=== PATIENT | male | born 1930 | race Caucasian/White ===

== ENCOUNTER 2019-01-27 12:08 | Inpatient (IN) | payer MEDICARE ==
[~2019-01-27] VITALS: Ht 180.3 cm; Wt 84.4 kg
[~2019-01-27 12:08] MED LIST: AC500T PO; ASP81CT PO; ASPI-266 PO; ATRV10T PO; BLOOD PRESSURE MED; BSC10SU PR; CALCIUM; CPR500T PO; HCT25T PO; HYDR-3720 PO; LISI10TA PO; METO-272 PO; METO25TA PO; MULT-608; PHOSPHORUS; TRAM-21 PO; VITAMIN A; VITAMIN B-12; VITAMIN C; VITAMIN D
[2019-01-27] MEDS ORDERED: fentaNYL INJECTION 100 MCG/2 ML AMP IM ONE (13:00)
--- NOTE | 2019-01-27 13:02 | ED Back Pain ---
General Chief Complaint: Back Problems Stated Complaint: FALL L HIP/BACK PAIN Source of Information: Patient, Family Exam Limitations: Physical Impairments History of Present Illness Date Seen by Provider: Jan 27, 2019 Time Seen by Provider: 13:00 Initial Comments This 80-year-old male presents after sustaining an injury to his low back when he fell at home. Prescription [facility] emergency room. He is complaining of pain over the lumbar area. He denies paresthesias or weakness in extremities. He denies other injury in this fall. Allergies and Home Medications Allergies Coded Allergies: indomethacin (Unverified Allergy, Mild, 03/20/09) Home Medications Aspirin 81 Mg Tablet.dr, 81 MG PO DAILY, (Reported) Atorvastatin Calcium 10 Mg Tablet, 1 EACH PO HS, (Reported) Lisinopril 10 Mg Tablet, 10 MG PO DAILY, (Reported) Metoprolol Succinate 50 Mg Tab.sr.24h, 1 EACH PO DAILY, (Reported) Tramadol Hcl 50 Mg Tablet, 50 MG PO Q12H PRN for PAIN Prescribed by: RHETT ABARCA on 08/09/14 0105 Patient Home Medication List Home Medication List Reviewed: Yes Review of Systems Constitutional: No chills, No fever EENTM: no symptoms reported Respiratory: No cough Cardiovascular: No chest pain Gastrointestinal: No abdominal pain, No diarrhea, No nausea, No vomiting Genitourinary: No dysuria, No frequency Musculoskeletal: No back pain Skin: no symptoms reported Psychiatric/Neurological: No Symptoms Reported Past Dlqybzu-Cftkra-Vjcvnr Hx Past Med/Social Hx: Reviewed Nursing Past Med/Soc Hx Immunizations Up To Date Tetanus Booster (TDap): Unknown Past Medical History Reproductive Disorders: No Sexually Transmitted Disease: No HIV/AIDS: No Chronic Constipation Fractures 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 oz. 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) Neck: Full Range of Motion, Normal Inspection, Non Tender, Supple Cardiovascular: Regular Rate, Rhythm, No Murmur Respiratory: Lungs Clear, Normal Breath Sounds, No Respiratory Distress Gastrointestinal: Normal Bowel Sounds, Soft Extremity: Normal Capillary Refill, Normal Range of Motion, Non Tender Neurologic/Psychiatric: Alert, No Motor/Sensory Deficits Progress/Results/Core Measures Results/Orders My Orders Orders - LEROY PEPPER MD Fentanyl Injection (Sublimaze Injection (01/27/19 13:00) Ct Lumbar Spine Wo (01/27/19 12:56) Hydromorphone Injection (Dilaudid Inject (01/27/19 13:45) Medications Given in ED Current Medications Medications Dose Ordered Sig/Jennifer Route Start Time Stop Time Status Last Admin Dose Admin Fentanyl Citrate 50 mcg ONCE ONCE IM 01/27/19 13:00 01/27/19 13:01 DC 01/27/19 13:13 50 MCG Hydromorphone HCl 1 mg ONCE ONCE IV 01/27/19 13:45 01/27/19 13:46 DC 01/27/19 13:52 1 MG Vital Signs/I&O 01/27/19 12:10 Temp 97.6 Pulse 78 Resp 20 B/P (MAP) 165/92 (116) Pulse Ox 95 Progress Progress Note : Time: 14:21 Progress Note Others with Dr. Vick is director of marketing operations for Dr. Simpson. We admitted the patient for pain control and physical therapy. Patient received 50 g fentanyl with little relief in his back pain. He received a milligram of Dilaudid with significant improvement. CT of his lumbar spine demonstrated a compression fracture of L1. Departure Communication (Admissions) Time/Spoke to Admitting Phy: 14:24 Dr. Henderson Impression Primary Impression: Compression fracture of L1 lumbar vertebra Qualified Codes: S32.010A - Wedge compression fracture of first lumbar vertebra, initial encounter for closed fracture Disposition: ADMITTED INPATIENT Condition: Improved Admissions Decision to Admit Reason: Admit from ER (General) Decision to Admit/Date: Jan 27, 2019 Time/Decision to Admit Time: 14:25 Departure-Patient Inst. Referrals: NITESH SIMPSON MD (PCP/Family) Primary Care Physician LEROY PEPPER MD Jan 27, 2019 13:02
[2019-01-27] MEDS ORDERED: HYDROmorphone 2 MG/ML VIAL (DILAUDID) IV ONE (13:45)
--- NOTE | 2019-01-27 13:51 | Diagnostic Imaging Report ---
PROCEDURE: CT lumbar spine without contrast. TECHNIQUE: Multiple contiguous axial images were obtained through the lumbar spine without the use of intravenous contrast. Sagittal and coronal reformations were then performed. Auto Exposure Controls were utilized during the CT exam to meet ALARA standards for radiation dose reduction. INDICATION: Fall with severe low back pain. FINDINGS: Curvature and alignment of the lumbar spine is normal. There appears to be an acute fracture involving the superior endplate of the L1 vertebral body with very mild central compression. No retropulsion is identified. Remaining lumbar vertebrae demonstrate normal stature. 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 There appears to be trefoil narrowing of the central canal at multiple levels due to ligamentous thickening and facet changes as well as broad-based disc/osteophyte complex. There is an infrarenal abdominal aortic aneurysm measuring up to 4.1 cm AP diameter. 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 There are large right-sided renal cysts measuring up to nearly 6 cm. IMPRESSION: 1. Acute superior endplate fracture L1 vertebral body without evidence of retropulsion. 2. Generalized lumbar spondylosis. 3. 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 Dictated by: Dictated on workstation # [id number]
--- NOTE | 2019-01-27 13:53 | NUR ---
DILAUDID GIVEN IM PER DR PEPPER'S REQUEST.
[2019-01-27 15:28] VITALS: BP 151/80
[2019-01-27] MEDS ORDERED: HYDROmorphone 2 MG/ML VIAL (DILAUDID) IV PRN ×2 (16:00→17:00)
[2019-01-27] MEDS ORDERED: CATHETER FLUSH 10 ML SYR IV PRN (16:00)
--- NOTE | 2019-01-27 16:13 | Physical Therapy Evaluation ---
PT Evaluation-General Medical Diagnosis Admission Date Jan 27, 2019 at 14:52 Medical Diagnosis: lumbar compression fx Onset Date: Jan 27, 2019 Therapy Diagnosis Therapy Diagnosis: impaired mobility, strength, endurance Height/Weight Height (Feet): 5 Height (Inches): 11.00 Weight (Pounds): 183 Precautions Precautions/Isolations: Fall Prevention, Standard Precautions Weight Bear Status Right Lower Extremity: Right Weight Bearing/Tolerated Left Lower Extremity: Left Weight Bearing/Tolerated Referral Physician: Pedro Henderson MD Reason for Referral: Evaluation/Treatment Medical History Additional Medical History Past Medical History Reproductive Disorders: No Sexually Transmitted Disease: No HIV/AIDS: No Chronic Constipation Fractures 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 Patient completes activity by themselves 4 Supervision or touching assist (CGA). Branch provide cues , steadying assist 3 The helper provides less than half the effort to complete the activity 2 The helper provides more than half the effort to complete the activity 1 Dependent. The helper does all the effort to complete an activity 7 Patient refused to complete or attempt activity 9 The patient did not perform the activity before the current illness or injury 88 Not attempted due to Medical conditions or safety concerns Functional Abilities and Goals: Independent: Patient completed the activities by him/herself, with or without an assistive device, with no assistance from a helper. Needed Some Help: Patient needed partial assistance from another person to complete activities. Dependent: A helper completed the activities for the patient. Unknown: Not Applicable: Bed Mobility: 7 Transfers (B,C,W/C) (FIM): 6 Gait: 6 Stairs: 6 Indoor Mobility (Ambulation): Independent Stairs: Independent Patient is blind and uses a cane. PT Evaluation-Current Subjective Patient in bed pre tx, agrees to PT, has 10/10 pain in low back with movement. Patient was just admitted to the floor from ER, he says his pain is severe and it is not really under control yet with meds, the nurse called and found out that the fx does not require operation. Pt/Family Goals "decrease pain" Objective Patient Orientation: Person, Place, Situation ROM/Strength ROM Lower Extremities WNL Strength Lower Extremities 4+/5 gross but hip flexion not tested due to pain Sensory Vision: Blind Totally Hearing: Impaired Sensation Right Lower Extremit: Intact Sensation Left Lower Extremity: Intact Transfers Therapy Code Descriptions/Definitions Functional Knott Measure: 0=Not Assessed/NA 4=Minimal Assistance 1=Total Assistance 5=Supervision or Setup 2=Maximal Assistance 6=Modified Knott 3=Moderate Assistance 7=Complete Knott Transfers (B, C, W/C) (FIM): 5 Scootin Rollin Supine to/from Sit: 5 Patient had 10/10 pain with just sitting, standing and ambulation not done at this time due to pain. Balance Sitting Static: Normal Sitting Dynamic: Normal Assessment/Needs Patient has impaired mobility, strength, endurance. Severe pain with movement. Rehab Potential: Fair PT Short Term Goals Short Term Goals Time Frame: Feb 03, 2019 Transfers (B,C,W/C) (FIM): 6 Gait (FIM): 5 Gait Distance Comment: 150' Gait Level of Assist: 5 Gait Assistive Device: Cane Single Point PT Plan Problem List Problem List: Activity Tolerance, Functional Strength, Safety, Balance, Gait, Transfer, Bed Mobility, ROM Treatment/Plan Treatment Plan: Continue Plan of Care Treatment Plan: Bed Mobility, Education, Functional Activity Zia, Functional Strength, Gait, Safety, Therapeutic Exercise, Transfers Treatment Duration: Feb 03, 2019 Frequency: 6 times per week Estimated Hrs Per Day: .25 hour per day Patient and/or Family Agrees t: Yes Safety Risks/Education Patient Education: Correct Positioning, Safety Issues Teaching Recipient: Patient Teaching Methods: Demonstration, Discussion Response to Teaching: Reinforcement Needed Discharge Recommendations Plan Patient will perform bed mobility and transfer training, balance and endurance training, functional strengthening, stair training, gait training, and education, to improve functional mobility and independence at home. Therapy Discharge Recommendati: Other, See Comments (home with family supervision) Time/GCodes Time In: 1553 Time Out: 1603 Total Billed Treatment Time: 10 Total Billed Treatment 1 visit KIM NEWMAN PT Jan 27, 2019 16:13
[2019-01-27] MEDS ORDERED: ACETAMINOPHEN 500 MG TAB (TYLENOL) PO PRN ×2 (17:00→21:00)
--- NOTE | 2019-01-27 17:34 | History & Physical-Hospitalist ---
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 He was not using his walker and stat normally only uses it when he leaves He fell and when attempting to get up noted s by his who I suspect from his description is quite and also into her 80s. He states that she only has 20 percent of her vision. EMS services were summoned and x-ray evaluation in the emergency room revealed a wedge-shape involving L1 which corresponded with the location He reported no previous known back fractures but he does have hip replacement for hip fracture several years ago. He states that he had been in his usual state of health prior to his fall denying dyspnea on exertion or chest He denied any problems with night sweats chills or fever. Date Seen 01/27/19 Time Seen by a Provider: 04:00 Attending Physician Leroy Henderson MD PCP Indu Simpson MD Referring Physician Date of Admission Jan 27, 2019 at 14:52 Home Medications & Allergies Home Medications Reviewed patient Home Medication Reconciliation performed by pharmacy medication reconciliations satellite installation technician and/or nursing. Patients Allergies have been reviewed. Allergies Allergies Coded Allergies indomethacin (Unverified Allergy, Mild, 03/20/09) Past Muqdzpr-Vjaukg-Euzevi Hx Past Med/Social Hx: Reviewed Nursing Past Med/Soc Hx, Reviewed and Corrections made Patient Social History Alcohol Use: Denies Use Recreational Drug Use: No Smoking Status: Former Smoker Former Smoker, Quit: Feb 02, 2001 Recent Foreign Travel: No Contact w/other who traveled: No Recent Hopitalizations: Yes Recent Infectious Disease Expo: No Immunizations Up To Date Tetanus Booster (TDap): Unknown Date of Pneumonia Vaccine: Feb 03, 2012 Past Medical History Surgeries: Gallbladder, Orthopedic Reproductive: No Sexually Transmitted Disease: No HIV/AIDS: No Gastrointestinal: Chronic Constipation Musculoskeletal: Fractures 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 0.0oz. 84.824468bl; 25.9 BMI Method:Stated General Appearance: Moderate Distress (with any movement only mild distress at rest.) Respiratory: No Accessory Muscle Use, No Respiratory Distress, Other (few dry sounding rales in both bases chest otherwise clear) Cardiovascular: Regular Rate, Rhythm, No Edema, No Gallop, No JVD, No Murmur Gastrointestinal: Normal Bowel Sounds, No Organomegaly, No Pulsatile Mass, Non Tender, Soft Extremity: Normal Capillary Refill, Normal Inspection, No Calf Tenderness, No Pedal Edema Results Results/Procedures Labs Patient resulted labs reviewed. Assessment/Plan Admission Diagnosis 1. Acute compression fracture L1 due to the patient's frailty and for pain management he was admitted. I requested consultation from Dr. Vallecillo but he adv ised physical therapy and attempts at pain management first before even considering kyphoplasty. We will proceed with physical therap expectations discussed with the patient. 2. History of coronary artery disease appears to be clinically stable. Continu e statin therapy. 3. Hypertension continue antihypertensive therapy. Admission Status: Inpatient Order (span 2 midnights) Reason for Inpatient Admission: see admission diagnosis Clinical Quality Measures DVT/VTE Risk/Contraindication: Risk Factor Score Per Nursin RFS Level Per Nursing on Admit: 2=Moderate LEROY HENDERSON MD Jan 27, 2019 17:34
[2019-01-27 18:17] LABS: BASOPHILS % (AUTO) 0 % (0-10); EOSINOPHILS # (AUTO) 0.2 10^3/uL (0.0-0.3); EOSINOPHILS % (AUTO) 2 % (0-10); HEMATOCRIT 39 % (40-54); HEMOGLOBIN 12.6 G/DL (13.3-17.7); LYMPHOCYTES # (AUTO) 1.4 X 10^3 (1.0-4.0); LYMPHOCYTES % (AUTO) 13 % (12-44); MEAN CORPUSCULAR HEMOGLOBIN 36 PG (25-34); MEAN CORPUSCULAR HGB CONC 32 G/DL (32-36); MEAN CORPUSCULAR VOLUME 111 FL (80-99); MEAN PLATELET VOLUME 9.8 FL (7.4-10.4); MONOCYTES # (AUTO) 1.8 X 10^3 (0.0-1.0); MONOCYTES % (AUTO) 16 % (0-12); NEUTROPHILS # (AUTO) 7.8 X 10^3 (1.8-7.8); NEUTROPHILS % (AUTO) 70 % (42-75); PLATELET COUNT 192 10^3/uL (130-400); RED CELL DISTRIBUTION WIDTH 13.6 % (10.0-14.5); WHITE BLOOD COUNT 11.2 10^3/uL (4.3-11.0)
[2019-01-27 18:35] LABS: ALBUMIN 3.3 GM/DL (3.2-4.5); BILIRUBIN,TOTAL 0.7 MG/DL (0.1-1.0); CALCIUM 9.1 MG/DL (8.5-10.1); CREATININE SERUM 1.67 MG/DL (0.60-1.30); POTASSIUM 4.6 MMOL/L (3.6-5.0); TOTAL PROTEIN 7.3 GM/DL (6.4-8.2)
[2019-01-27 20:14] VITALS: BP 167/77
[2019-01-27] MEDS: CATHETER FLUSH 10 ML SYR IV SCH (20:31)
[2019-01-28 00:38] VITALS: BP 171/85
[2019-01-28 04:36] VITALS: BP 145/70
[2019-01-28] MEDS: CATHETER FLUSH 10 ML SYR IV SCH ×3 (06:28→21:06)
[2019-01-28 07:31] VITALS: BP 167/79
[2019-01-28] MEDS: lisINopril 10 MG (PRINIVIL) TABLET PO SCH (08:29)
[2019-01-28] MEDS: meTOproloL SUCCINATE 50 MG (TOPROL XL) TAB PO SCH (08:29)
[2019-01-28 11:03] VITALS: BP 137/62
--- NOTE | 2019-01-28 11:21 | Progress Note - Hospitalist ---
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 He was not using his walker and stat normally only uses it when he leaves He fell and when attempting to get up noted s by his who I suspect from his description is quite and also into her 80s. He states that she only has 20 percent of her vision. EMS services were summoned and x-ray evaluation in the emergency room revealed a wedge-shape involving L1 which corresponded with the location He reported no previous known back fractures but he does have hip replacement for hip fracture several years ago. He states that he had been in his usual state of health prior to his fall denying dyspnea on exertion or chest He denied any problems with night sweats chills or fever. Subjective/Events-last exam Patient reports better pain control was still feeling quite weak. He denies bowel or bladder control problems and reports generalized weakness he does not feel any worse in his legs and his arms. He denies lightheadedness when he gets up. Objective Exam Vital Signs Vital Signs Date Time Temp Pulse Resp B/P (MAP) Pulse Ox O2 Delivery O2 Flow Rate FiO2 01/28/19 11:03 96.6 73 20 137/62 (87) 92 Room Air Capillary Refill : Less Than 3 SecondsLess Than 3 Seconds General Appearance: No Apparent Distress, WD/WN Respiratory: Lungs Clear, Normal Breath Sounds, No Accessory Muscle Use, No Respiratory Distress Cardiovascular: Regular Rate, Rhythm, No Edema, No Gallop, No JVD, Normal Peripheral Pulses Extremity: Normal Inspection, Normal Range of Motion, No Pedal Edema Neurologic/Psychiatric: Alert, No Motor/Sensory Deficits Results/Procedures Lab Patient resulted labs reviewed. Assessment/Plan Assessment and Plan Assess & Plan/Chief Complaint A/P 1. Acute T1 wedge compression fracture due to fall but not from height suspect pathologic etiology due to osteoporosis. 2. Macrocytic anemia I will check B12 and folate levels patient reports that he has been on B12 injection therapy he has been taking oral as of late. Clinical Quality Measures DVT/VTE Risk/Contraindication: Risk Factor Score Per Nursin RFS Level Per Nursing on Admit: 2=Moderate LEROY GORDON MD Jan 28, 2019 11:21
--- NOTE | 2019-01-28 14:24 | Physical Therapy Daily Note ---
PT Daily Note-Current Subjective Pt agreeable to PT session. Voicing concern that his is not answering the phone, called and spoke with nurse, nurse reassured pt that had been trying to call but his phone was busy Pain Numeric Pain Scale: 5-Moderate Pain Comment: "in my back", states he had received pain med Appearance Pt in bed upon arrival, awake and alert. At end of session, pt sitting at EOB eating cookie and drinking coffee, nurse stating pt is ok sitting EOB without supervision, call light, phone and bedside table within reach Mental Status Patient Orientation: Person, Time, Situation Transfers Therapy Code Descriptions/Definitions Functional Walker Measure: 0=Not Assessed/NA 4=Minimal Assistance 1=Total Assistance 5=Supervision or Setup 2=Maximal Assistance 6=Modified Walker 3=Moderate Assistance 7=Complete Walker Therapy Quality Codes: 6 Independent with activity with or without an assistive device 5 Patient requires set up or clean up by helper. Patient completes activity by themselves 4 Supervision or touching assist (CGA). [place] provide cues , steadying assist 3 The helper provides less than half the effort to complete the activity 2 The helper provides more than half the effort to complete the activity 1 Dependent. The helper does all the effort to complete an activity 7 Patient refused to complete or attempt activity 9 The patient did not perform the activity before the current illness or injury 88 Not attempted due to Medical conditions or safety concerns Transfers (B, C, W/C) (FIM): 5 Scootin Rollin Supine to/from Sit: 5 Sit to/from Stand: 5 min inst required for hand placement and safety Weight Bearing Right Lower Extremity: Right Weight Bearing/Tolerated Left Lower Extremity: Left Weight Bearing/Tolerated Gait Training Gait (FIM): 4 Distance (FIM): 3=150 ft Distance: 150 Gait Level of Assist: 4 (CGA to Min A required, per nsg, 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 Pt requiring assist to safely maneuver walker through doorway and around furniture) Gait Persons Needed: 1 Gait Assistive Device: FWW Pt is blind, slow pace, path deviation, decreased step length and height, occasional unsteadiness but without LOB Treatments bed mobility, transfers, gait, balance, strength, activity tolerance, education, safety Assessment Current Status: Good Progress PT Short Term Goals Short Term Goals Time Frame: Feb 03, 2019 Transfers (B,C,W/C) (FIM): 6 Gait (FIM): 5 Gait Distance Comment: 150' Gait Level of Assist: 5 Gait Assistive Device: Cane Single Point PT Plan Treatment/Plan Treatment Plan: Continue Plan of Care Treatment Plan: Bed Mobility, Education, Functional Activity Zia, Functional Strength, Gait, Safety, Therapeutic Exercise, Transfers Treatment Duration: Feb 03, 2019 Frequency: 6 times per week Estimated Hrs Per Day: .25 hour per day Patient and/or Family Agrees t: Yes Safety Risks/Education Patient Education: Gait Training, Transfer Techniques, Safety Issues Teaching Recipient: Patient Teaching Methods: Discussion Response to Teaching: Verbalize Understanding, Return Demonstration Time/GCodes Time In: 1219 Time Out: 1230 Total Billed Treatment Time: 11 Total Billed Treatment 1 visit, GT x1 unit FELZI LOZOYA PTA Jan 28, 2019 14:24
[2019-01-28 16:00] VITALS: BP 157/78
[2019-01-28 23:11] VITALS: BP 120/70
[2019-01-29 04:07] VITALS: BP 120/61
[2019-01-29] MEDS: CATHETER FLUSH 10 ML SYR IV SCH (06:51)
[2019-01-29 08:00] VITALS: BP 135/65
[2019-01-29] MEDS: lisINopril 10 MG (PRINIVIL) TABLET PO SCH (08:32)
[2019-01-29] MEDS: meTOproloL SUCCINATE 50 MG (TOPROL XL) TAB PO SCH (08:32)
[2019-01-29] MEDS ORDERED: TRAM50TA2 PO (09:30)
[2019-01-29] MEDS ORDERED: ACET325C5 PO (09:30)
[2019-01-29] MEDS ORDERED: CYANOCOBALAMIN INJ 1000 MCG/ML IM NR (09:36)
--- NOTE | 2019-01-29 09:37 | Discharge Summary ---
Diagnosis/Chief Complaint Date of Admission Jan 27, 2019 at 14:52 Date of Discharge Discharge Date: Jan 29, 2019 Admission Diagnosis 1. Acute compression fracture L1 due to the patient's frailty and for pain management he was admitted. I requested consultation from Dr. Vallecillo but he ad vised physical therapy and attempts at pain management first before even considering kyphoplasty. We will proceed with physical therap expectations discussed with the patient. 2. History of coronary artery disease appears to be clinically stable. Contin ue statin therapy. 3. Hypertension continue antihypertensive therapy. Primary Care Nitesh Simpson MD Discharge Summary Discharge Physical Exam Allergies: Coded Allergies: indomethacin (Unverified Allergy, Mild, 03/20/09) Vitals & I&Os Vital Signs Date Time Temp Pulse Resp B/P (MAP) Pulse Ox O2 Delivery O2 Flow Rate FiO2 01/29/19 08:00 Room Air 01/29/19 08:00 98.4 77 20 135/65 (88) 94 General Appearance: No Apparent Distress Respiratory: Normal Breath Sounds, No Accessory Muscle Use, No Respiratory Distress, Rales (Few fine basilar rales noted unchanged from admission.) Cardiovascular: Regular Rate, Rhythm Hospital Course Was the Problem List Reviewed?: Yes the patient is a frail 88-year-old 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 He was not using his walker and stat normally only uses it when he leaves He fell and when attempting to get up noted s by his who I suspect from his description is quite and also into her 80s. He states that she only has 20 percent of her vision. EMS services were summoned and x-ray evaluation in the emergency room revealed a wedge-shape involving L1 which corresponded with the location He reported no previous known back fractures but he does have hip replacement for hip fracture several years ago. He states that he had been in his usual state of health prior to his fall denying dyspnea on exertion or chest He denied any problems with night sweats chills or fever Patient was admitted for pain control. He received one more IV dose of by while on the floor. Scheduled tramadol 50 mg every 8 and Tylenol 1 g every 8 hours were given. He reported only pain with movement but was independent and overall felt as pain control was adequate. He was noted to have macrocytic anemia with a low B12 level of 146. He was given thousand micrograms of B12 IM and was advised to follow-up with Dr. Simpson in 1-2 weeks. Orthopedics was consulted via phone but just advised continued pain medication and did not feel considering the circumstances of reasonable pain control that kyphoplasty was indicated at this time. Patient was advised to take Tylenol 650 mg every 8 hours on a scheduled basis. He was concerned about long-term tramadol use and was told he can take this as needed also up to every 8 hours. A prescription was given for 30 tabs of 50 mg strength. He was told that he will need regular B12 therapy either high-dose oral that is monitored or continued IM injections. Labs (last 24 hrs) Laboratory Tests 01/28/19 11:20: Vitamin B12 Level <146L, Folate 8.4 Patient resulted labs reviewed. Discussion & Recommendations Discharge Planning: >30 minutes discharge planning Discharge Home Medications: Active Scripts Active Tylenol (Acetaminophen) 325 Mg Capsule 650 Mg PO Q8H PRN 60 Days Tramadol HCl 50 Mg Tablet 50 Mg PO TID 7 Days Ultram (Tramadol Hcl) 50 Mg Tablet 50 Mg PO Q12H PRN Reported Aspirin Ec Low Dose (Aspirin) 81 Mg Tablet.dr 81 Mg PO DAILY Metoprolol Succinate Xl 50 Mg (Metoprolol Succinate) 50 Mg Tab.sr.24h 1 Each PO DAILY Prinivil (Lisinopril) 10 Mg Tablet 10 Mg PO DAILY Lipitor 10 Mg (Atorvastatin Calcium) 10 Mg Tablet 1 Each PO HS Instructions to patient/family Please see electronic discharge instructions given to patient. Clinical Quality Measures DVT/VTE Risk/Contraindication: Risk Factor Score Per Nursin RFS Level Per Nursing on Admit: 2=Moderate Copy Copies To 1: NITESH SIMPSON MD, MARK D MD Jan 29, 2019 09:37
== END 2019-01-29 10:05 | disposition home or self-care (01) | DRG 948 ==
LOC: EDUNIT# 12:08 → ER 12:11 → 4TH 14:52
PROVIDERS: ADMIT Internal Medicine; ATTEND Internal Medicine
DX: G89.11 Acute pain due to trauma (principal); M80.88XA Other osteoporosis with current pathological fracture, vertebra(e), initial encounter for fracture; W18.09XA Striking against other object with subsequent fall, initial encounter; I25.10 Atherosclerotic heart disease of native coronary artery without angina pectoris; I10 Essential (primary) hypertension; H35.52 Pigmentary retinal dystrophy; D53.9 Nutritional anemia, unspecified; K59.09 Other constipation; H91.90 Unspecified hearing loss, unspecified ear; Z85.038 Personal history of other malignant neoplasm of large intestine; Z96.649 Presence of unspecified artificial hip joint; Z87.891 Personal history of nicotine dependence; Y92.009 Unspecified place in unspecified non-institutional (private) residence as the place of occurrence of the external cause
CPT/HCPCS: 36415; 72131; 80053; 82607; 82746; 85025; 96372; 96374

== ENCOUNTER 2019-01-30 23:08 | Emergency (ER) | payer MEDICARE ==
[~2019-01-30] VITALS: Ht 177.8 cm; Wt 83.0 kg
[~2019-01-30 23:08] MED LIST changes: +ACET325C5 PO; +TRAM50TA2 PO
[2019-01-31 01:39] LABS: BILIRUBIN,URINE NEGATIVE (NEGATIVE); CLARITY,URINE CLEAR; COLOR,URINE YELLOW; GLUCOSE, URINE (UA) NEGATIVE (NEGATIVE); KETONES,URINE NEGATIVE (NEGATIVE); LEUKOCYTE ESTERASE ,URINE NEGATIVE (NEGATIVE); NITRITE,URINE NEGATIVE (NEGATIVE); PH,URINE 5 (5-9); PROTEIN,URINE NEGATIVE (NEGATIVE); UROBILINOGEN,URINE NORMAL (NORMAL)
[2019-01-31 01:46] LABS: BACTERIA,URINE NEGATIVE /HPF; SQUAMOUS EPITHELIAL CELL,UR 0-2 /HPF
[2019-01-31] MEDS ORDERED: ACETAMINOPHEN 500 MG TAB (TYLENOL) PO ONE (02:15)
--- NOTE | 2019-01-31 02:25 | ED General ---
General Chief Complaint: Abdominal/GI Problems Stated Complaint: CONSTIPATION Nursing Triage Note: Patient states that he is having abdominal pain and it "feels like I have to use the bathroom and can't". Patient is also having some back pain. Patient states that he had given himself two enemas at home with no relief. Nursing Sepsis Screen: No Definite Risk Source of Information: Patient (SOMEWHAT LIMITED HISTORIAN) History of Present Illness Date Seen by Provider: Jan 30, 2019 Time Seen by Provider: 23:20 Initial Comments PT ARRIVES VIA EMS FROM HOME C/O CONSTIPATION--IS UNCLEAR IF THIS IS A NEW OR OLD PROBLEM PT STATES HIS LAST BM WAS Wednesday01/27/19. PT STATES HE DID ENEMAS X 3 TODAY AND "GOT A LITTLE OUT EACH TIME" PT WAS ADMITTED 01/27/19 AFTER FALLING AND SUSTAINING L1 COMPRESSION FRACTURE--TREATED NON-SURGICALLY. 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 AND RAN INTO A DOORWAY AND FELL, INJURING HIS BACK PT STATES TODAY "I GOT BACK PROBLEMS, STOMACH PROBLEMS AND BLADDER PROBLEMS" STATES "I THINK WHEN THEY PUT MY HERNIA BACK TOGETHER THEY PUT A KINK IN MY BOWELS" "IT STARTED IN 3 AND I BEEN OPERATED ON 3 TIMES FOR IT" "NOW I BROKE MY BACK AND CAN'T HARDLY MOVE" STATES "I WAS DISMISSED ON WEDNESDAY AND THEY SENT ME HOME WITH "TOLULENE" AND I TOOK 3 AND IT DIDN'T DO ANY GOOD AND IT'S WORSE NOW" --STATES HE HAS NOT TAKEN ANYTHING FOR PAIN TODAY STATES HE HAS BEEN EATING AND DRINKING WELL, AND HAD FRIED [employer] FOR DINNER DENIES ANY NAUSEA / VOMITING C/O PRESSURE IN HIS ABDOMEN DUE TO CONSTIPATION STATES WHEN HE URINATES, "I CAN'T GO BUT LITTLE BITS AT A TIME" --IS UNCLEAR IF THIS IS A NEW OR OLD PROBLEM DENIES PARESTHESIAS OR MOTOR DEFICITS PCP: DR. MCLAUGHLIN Allergies and Home Medications Allergies Coded Allergies: indomethacin (Unverified Allergy, Mild, 03/20/09) Home Medications Acetaminophen 325 Mg Capsule, 650 MG PO Q8H PRN for BACK PAIN Prescribed by: LEROY GORDON on 01/29/19 0930 Aspirin 81 Mg Tablet., 81 MG PO DAILY, (Reported) Atorvastatin Calcium 10 Mg Tablet, 1 EACH PO HS, (Reported) Lisinopril 10 Mg Tablet, 10 MG PO DAILY, (Reported) Metoprolol Succinate 50 Mg Tab.sr.24h, 1 EACH PO DAILY, (Reported) Tramadol HCl 50 Mg Tablet, 50 MG PO TID Prescribed by: LEROY GORDON on 01/29/19 0412 Patient Home Medication List Home Medication List Reviewed: Yes Review of Systems Review of Systems Constitutional: No fever Respiratory: No short of breath Cardiovascular: No chest pain Gastrointestinal: see HPI, constipation; No loss of appetite, No nausea, No vomiting Genitourinary: see HPI Musculoskeletal: see HPI, back pain Skin: no symptoms reported Psychiatric/Neurological: No Symptoms Reported; Denies Numbness, Denies Paresthesia, Denies Weakness Past [id number]-[id number]-Rngioh Hx Patient Social History Alcohol Use: Denies Use Recreational Drug Use: No Smoking Status: Never a Smoker Former Smoker, Quit: Feb 02, 2001 Recent Foreign Travel: No Contact w/Someone Who Travel: No Recent Infectious Disease Expo: No Recent Hopitalizations: Yes Physical Abuse: No Sexual Abuse: No Mistreated: No Fear: No Immunizations Up To Date Tetanus Booster (TDap): Unknown Date of Pneumonia Vaccine: Feb 03, 2012 Past Medical History Surgeries: Yes (COLON RESECTION; BILATERAL INGUINAL HERNIA REPAIR; HIATAL HERNIA REPAIR; LEFT HIP REPLACEMENT) Abdominal, Bowel Surgery, Gallbladder, Orthopedic Respiratory: Yes Pneumonia Cardiac: Yes High Cholesterol, Hypertension Neurological: No Reproductive Disorders: No Sexually Transmitted Disease: No HIV/AIDS: No Genitourinary: Yes Prostate Problems Gastrointestinal: Yes (COLON RESECTION FOR COLON CANCER; BILATERAL INGUINAL HERNIA REPAIRS; HIATAL HERNIA REPAIR) Gastroesophageal Reflux, Chronic Constipation, Hiatal Hernia Musculoskeletal: Yes (SCIATICA; LEFT HIP REPLACEMENT; L1 COMPRESSION 01/27/19) Fractures Endocrine: No HEENT: Yes Loss of Vision: Bilateral (BLINDNESS BILATERALLY) Hearing Impairment: Hard of Hearing, Hearing Aide Left Cancer: Yes (2000) Colon Did You Recieve Any Treatments: Yes What Type of Treatment Did You: Surgical Intervention Psychosocial: No Integumentary: No Blood Disorders: No Adverse Reaction/Blood Tranf: No Physical Exam Vital Signs Vital Signs - First Documented 01/30/19 23:10 Temp 37.1 Pulse 85 Resp 18 B/P (MAP) 177/90 Pulse Ox 96 O2 Delivery Room Air Capillary Refill : Less Than 3 Seconds Height, Weight, BMI Height: 5'11.00" Weight: 186lbs. 0.0oz. 84.455903va; 26.00 BMI Method:Stated General Appearance: No Apparent Distress, WD/WN HEENT: Other (BLIND--PUPILS AND CORNEAS IRREGULAR) Respiratory: Normal Breath Sounds, No Accessory Muscle Use, No Respiratory Distress Cardiovascular: Regular Rate, Rhythm, No Edema Gastrointestinal: Normal Bowel Sounds, No Pulsatile Mass, Non Tender (NON-TENDER--STATES "JUST FEELS FULL" ), Soft Back: Vertebral Tenderness (LUMBAR AREA TENDERNESS) Extremity: Normal Range of Motion, Non Tender, No Pedal Edema Neurologic/Psychiatric: Alert, Oriented x3 (? SOMEWHAT CONFUSED AT TIMES ? ), No Motor/Sensory Deficits, Normal Mood/Affect Skin: Normal Color, Warm/Dry Progress/Results/Core Measures Suspected Sepsis Recent Fever Within 48 Hours: No Infection Criteria Present: None New/Unexplained Altered Menta: No Sepsis Screen: No Definite Risk SIRS Temperature: Pulse: 85 Respiratory Rate: 18 Blood Pressure 177 /90 Mean: 119 Results/Orders Lab Results Laboratory Tests Test 01/31/19 01:34 Range/Units Urine Color YELLOW Urine Clarity CLEAR Urine pH 5 5-9 Urine Specific [place] 1.020 1.016-1.022 Urine Protein NEGATIVE NEGATIVE Urine Glucose (UA) NEGATIVE NEGATIVE Urine Ketones NEGATIVE NEGATIVE Urine Nitrite NEGATIVE NEGATIVE Urine Bilirubin NEGATIVE NEGATIVE Urine Urobilinogen NORMAL NORMAL MG/DL Urine Leukocyte Esterase NEGATIVE NEGATIVE Urine RBC (Auto) NEGATIVE NEGATIVE Urine RBC NONE /HPF Urine WBC NONE /HPF Urine Squamous Epithelial Cells 0-2 /HPF Urine Crystals NONE /LPF Urine Bacteria NEGATIVE /HPF Urine Casts NONE /LPF Urine Mucus NEGATIVE /LPF Urine Culture Indicated NO My Orders Orders - JOHN BARNES DO Acute Abd Series (01/30/19 23:19) Ct Abdomen/Pelvis Wo (01/31/19 00:21) Bladder Scan (01/31/19 01:15) Ua Culture If Indicated (01/31/19 01:15) Tramadol Tablet (Ultram Tablet) (01/31/19 02:15) Acetaminophen Tablet (Tylenol Tablet) (01/31/19 02:15) Magnesium Citrate Oral Soln (Citrate Of (01/31/19 02:30) Bisacodyl Suppository (Dulcolax Supposit (01/31/19 02:30) Medications Given in ED Current Medications Medications Dose Ordered Sig/Jennifer Route Start Time Stop Time Status Last Admin Dose Admin Acetaminophen 1,000 mg ONCE ONCE PO 01/31/19 02:15 01/31/19 02:16 DC 01/31/19 02:38 1,000 MG Bisacodyl 10 mg ONCE ONCE CA 01/31/19 02:30 01/31/19 02:31 DC 01/31/19 03:00 10 MG Magnesium Citrate 300 ml ONCE ONCE PO 01/31/19 02:30 01/31/19 02:31 DC 01/31/19 03:00 300 ML Tramadol HCl 50 mg ONCE ONCE PO 01/31/19 02:15 01/31/19 02:16 DC 01/31/19 02:38 50 MG Vital Signs/I&O 01/30/19 01/31/19 23:10 02:59 Temp 37.1 37.8 Pulse 85 82 Resp 18 18 B/P (MAP) 177/90 158/92 Pulse Ox 96 97 O2 Delivery Room Air Room Air Capillary Refill : Less Than 3 Seconds Blood Pressure Mean: 119 Progress Note : Progress Note PT VOIDED > 250 ML AT ONCE, AND POST VOID RESIDUAL WAS 11 ML. NO DETERIORATION IN PT'S CONDITION DURING ER STAY. LENGTHY DISCUSSION WITH PT, AND ALSO WITH VIA PHONE, ABOUT RESULTS AND TREATMENT PLAN AND NEED FOR FOLLOW UP PT GIVEN MAG CITRATE AND DULCOLAX SUPPOSITORY--PT OPTS TO TAKE WHEN HE GETS HOME ALSO ADVISED ON MIRALAX USE AND ADDITIONAL DULCOLAX SUPPOSITORY AND FLEET'S ENEMAS NEEDED ADVISED OF IMPORTANCE OF FOLLOW UP WITH DR. MCLAUGHLIN THIS WEEK FOR THESE ISSUES, INCLUDING FOLLOW UP / FURTHER EVALUATION OF ANEURYSMS. Diagnostic Imaging Comments ABDOMEN XRAYS--FECAL LOADING, ? ILEUS VS PARTIAL SBO ? --PENDING RADIOLOGIST REVIEW CT ABDOMEN / PELVIS---MILD L1 COMPRESSION FRACTURE OF SUPERIOR END PLATE, NO ASSOCIATED HEMATOMA OR RETROPULSION. MULTIPLE ANEURYSMS--4.4. CM AAA, 4.6 CM RIGHT ILIAC ANEURYSM, 3 CM DISTAL ABDOMINAL AORTIC FLOW DIVIDER ANEURYSM--ALL WITHOUT RUPTURE OR DISSECTION; NO BOWEL OBSTRUCTION; NO IMPACTION; LARGE AMOUNT OF STOOL IN COLON--PER STAT RAD RADIOLOGIST VIA PHONE AT [phone] ALSO HAS BILATERAL RENAL CYSTS AND SMALL LEFT INGUINAL HERNIA CONTAINING SMALL LOOP OF BOWEL--NO OBSTRUCTION OR INCARCERATION. Reviewed: Reviewed by Me, Discussed w/Radiologist Departure Impression Primary Impression: Constipation Additional Impressions: AAA (abdominal aortic aneurysm) without rupture Aneurysm of right common iliac artery Traumatic compression fracture of L1 lumbar vertebra Disposition: 01 HOME, SELF-CARE Condition: Stable Departure-Patient Inst. Referrals: NITESH MCLAUGHLIN MD (PCP/Family) Primary Care Physician Patient Instructions: Vertebral Compression Fracture (DC), Aortic Aneurysm (DC), Constipation, Adult (DC) Add. Discharge Instructions: INCREASE YOUR CLEAR LIQUIDS--WATER, BROTH, JELLO, GATORADE INCREASE YOUR FIBER IN YOUR DIET NO FOOD UNTIL YOUR BOWELS HAVE MOVED AND CLEARED USE DULCOLAX SUPPOSITORIES AND FLEET'S ENEMAS NEEDED FOR BM USE MIRALAX--7 CAPFULS IN LARGE GLASS OF WATER--MAY REPEAT IN 12 HOURS IF NECESSARY--UNTIL YOUR BOWELS HAVE MOVED AND YOUR STOOLS ARE CLEAR AFTER THAT, USE REGULAR DOSE OF 1 CAPFUL IN 8-12 OZ OF WATER DAILY TAKE YOUR PAIN MEDICATION PRESCRIBED FOR BACK PAIN FOLLOW UP WITH DR MCLAUGHLIN IN 2-3 DAYS FOR FURTHER CARE, OR SOONER IF NEEDED All discharge instructions reviewed with patient and/or family. Voiced understanding. JOHN BARNES DO Jan 31, 2019 02:25
[2019-01-31] MEDS ORDERED: MAGNESIUM CITRATE 300 ML BTL PO ONE (02:30)
[2019-01-31] MEDS ORDERED: BISACODYL 10 MG SUPP (DULCOLAX) PR ONE (02:30)
[2019-01-31 02:59] VITALS: BP 158/92
--- NOTE | 2019-01-31 06:11 | Diagnostic Imaging Report ---
PROCEDURE: CT abdomen and pelvis without contrast. TECHNIQUE: Multiple contiguous axial images were obtained through the abdomen and pelvis without the use of intravenous contrast. Auto Exposure Controls were utilized during the CT exam to meet ALARA standards for radiation dose reduction. INDICATION: Back pain and constipation. No comparison available. FINDINGS: Limited views of lower thorax reveal mild atelectasis. Surgical clips are seen at the diaphragmatic hiatus. Liver is normal. No focal liver lesions are seen. Gallbladder is absent. No biliary ductal dilation. The pancreas, spleen and adrenal glands are normal. There are numerous cysts in both kidneys. No suspicious renal lesions are seen. There are a few tiny nonobstructing stones versus vascular calcifications in the renal daisy. Urinary bladder is normal. No dilated loops of large or small bowel. No bowel obstruction or inflammation. There are bilateral inguinal hernia repairs. There is a left total hip arthroplasty. There is an infrarenal abdominal aortic aneurysm. The maximal size of the infrarenal aneurysm is 3.9 cm. There is a focal area of narrowing just below this aneurysm measuring 9 mm. There is another aneurysm compressing the right common iliac artery. This measures 5.3 cm. There are no suspicious osseous lesions. There is a mild superior endplate compression fracture of L1 which appears acute. No other fractures are seen. IMPRESSION: 1. Complex infrarenal abdominal aortic aneurysm with a maximal size of 3.9 cm and distal area of infrarenal abdominal aortic stenosis. 2. There is a second aneurysm of the right common iliac artery measuring up to 5.3 cm. 3. Acute appearing mild superior endplate compression fracture of L1. Dictated by: Dictated on workstation # [id number]
--- NOTE | 2019-01-31 07:26 | Diagnostic Imaging Report ---
Examination: Chest one view with abdomen 2 view. History: Ileus. Findings: No comparison available. Lungs are clear with the exception of mild atelectasis in the bases. No edema or pneumonia. Heart size is normal. There are no dilated loops of large or small bowel. No free air seen. There are surgical clips in the pelvis from the left total hip arthroplasty. Impression: 1. Normal bowel gas pattern and clear lungs. Dictated by: Dictated on workstation # [id number]
== END 2019-01-31 03:45 | disposition home or self-care (01) ==
LOC: EDUNIT# 23:08 → ER 23:08
DX: K59.00 Constipation, unspecified (principal); S32.010D Wedge compression fracture of first lumbar vertebra, subsequent encounter for fracture with routine healing; I71.4 Abdominal aortic aneurysm, without rupture; I72.3 Aneurysm of iliac artery; I10 Essential (primary) hypertension; E78.00 Pure hypercholesterolemia, unspecified; K21.9 Gastro-esophageal reflux disease without esophagitis; H54.7 Unspecified visual loss; Z85.038 Personal history of other malignant neoplasm of large intestine; Z79.82 Long term (current) use of aspirin; Z87.891 Personal history of nicotine dependence; Z98.890 Other specified postprocedural states; Z96.642 Presence of left artificial hip joint; Z88.6 Allergy status to analgesic agent; W18.09XA Striking against other object with subsequent fall, initial encounter
CPT/HCPCS: 74022; 74176; 81000

== ENCOUNTER 2019-07-15 22:58 | Emergency (ER) | payer MEDICARE ==
[~2019-07-15] VITALS: Ht 180 cm; Wt 83.0 kg
[~2019-07-15 22:58] MED LIST changes: -ACET325C5 PO; +ACET325C7 PO; -TRAM50TA2 PO; +TRM50T PO
[2019-07-15] MEDS ORDERED: morphine INJ 10 MG/ML 1ML (SYR OR VIAL) IV STA (23:04)
[2019-07-15] MEDS ORDERED: PANTOPRAZOLE 40 MG (PROTONIX) VIAL IV ONE (23:15)
[2019-07-15 23:29] LABS: BASOPHILS % (AUTO) 0 % (0-10); EOSINOPHILS # (AUTO) 0.8 10^3/uL (0.0-0.3); EOSINOPHILS % (AUTO) 7 % (0-10); HEMATOCRIT 34 % (40-54); HEMOGLOBIN 10.8 G/DL (13.3-17.7); LYMPHOCYTES # (AUTO) 2.7 X 10^3 (1.0-4.0); LYMPHOCYTES % (AUTO) 25 % (12-44); MEAN CORPUSCULAR HEMOGLOBIN 34 PG (25-34); MEAN CORPUSCULAR HGB CONC 32 G/DL (32-36); MEAN CORPUSCULAR VOLUME 106 FL (80-99); MEAN PLATELET VOLUME 9.8 FL (7.4-10.4); MONOCYTES # (AUTO) 1.1 X 10^3 (0.0-1.0); MONOCYTES % (AUTO) 11 % (0-12); NEUTROPHILS # (AUTO) 6.1 X 10^3 (1.8-7.8); NEUTROPHILS % (AUTO) 57 % (42-75); PLATELET COUNT 217 10^3/uL (130-400); RED CELL DISTRIBUTION WIDTH 13.6 % (10.0-14.5); WHITE BLOOD COUNT 10.7 10^3/uL (4.3-11.0)
--- NOTE | 2019-07-15 23:31 | ED Abdominal Pain ---
General Chief Complaint: Chest Pain Stated Complaint: CHEST PAIN Nursing Triage Note: ABDOMINAL PAIN Sepsis Screen: No Definite Risk Source of Information: Patient Exam Limitations: No Limitations History of Present Illness Date Seen by Provider: Jul 15, 2019 Time Seen by Provider: 23:07 Initial Comments Patient presents to ER by EMS from home with chief complaint that about an hour prior to arrival he was eating a [place] bar and began to experience some tremendous 10 out of 10 pain in his lower abdomen bilaterally. He took some Tylenol which did not help. Then called an ambulance. No history of coronary disease. He has had a couple surgeries on bilateral inguinal hernias as well as gallbladder. He's not having any nausea or vomiting. He had a bowel movement earlier today. He took some laxative thinking maybe that would help with his pain and did not have another bowel movement nor did help. He is not having any fevers or chills cough shortness of breath or chest pain. No swelling in his hands or feet. He follows with Dr. Simpson for primary care. No history of lactose intolerance, irritable bowel or inflammatory bowel disease. Last oral intake except for the Tylenol and laxative was 2200. Echocardi[address] Kam: EF 60% with aortic valve sclerosis but no stenosis. Allergies and Home Medications Allergies Coded Allergies: indomethacin (Unverified Allergy, Mild, 03/20/09) Home Medications Acetaminophen 325 Mg Capsule, 650 MG PO Q8H PRN for BACK PAIN Prescribed by: LEROY GORDON on 01/29/19929 Aspirin 81 Mg Tablet.dr, 81 MG PO DAILY, (Reported) Atorvastatin Calcium 10 Mg Tablet, 1 EACH PO HS, (Reported) Lisinopril 10 Mg Tablet, 10 MG PO DAILY, (Reported) Metoprolol Succinate 50 Mg Tab.sr.24h, 1 EACH PO DAILY, (Reported) Tramadol HCl 50 Mg Tablet, 50 MG PO TID Prescribed by: LEROY GORDON on 01/29/19929 Patient Home Medication List Home Medication List Reviewed: Yes Review of Systems Review of Systems Constitutional: No chills, No diaphoresis EENTM: No Blurred Vision, No Double Vision Respiratory: Denies Cough, Denies Shortness of Air Cardiovascular: Denies Chest Pain, Denies Irregular Heart Rate, Denies Lightheadedness, Denies Palpitations; Syncope (near syncopal earlier today) Gastrointestinal: See HPI; Denies Abdomen Distended; Abdominal Pain; Denies Constipated, Denies Diarrhea, Denies Nausea, Denies Poor Fluid Intake, Denies Vomiting Genitourinary: Denies Burning, Denies Discharge Musculoskeletal: No back pain, No gout Skin: No pruritus, No rash Psychiatric/Neurological: Denies Headache, Denies Numbness, Denies Paresthesia All Other Systems Reviewed Negative Unless Noted: Yes Past Euzbemo-Mzaryn-Yjnlgt Hx Patient Social History Alcohol Use: Denies Use Recreational Drug Use: No Smoking Status: Former Smoker Former Smoker, Quit: Feb 02, 2001 2nd Hand Smoke Exposure: No Recent Foreign Travel: No Contact w/Someone Who Travel: No Recent Infectious Disease Expo: No Recent Hopitalizations: No Physical Abuse: No Sexual Abuse: No Mistreated: No Fear: No Immunizations Up To Date Tetanus Booster (TDap): Unknown Date of Pneumonia Vaccine: Feb 03, 2012 Seasonal Allergies Seasonal Allergies: No Past Medical History Surgeries: Yes Abdominal, Bowel Surgery, Gallbladder, Orthopedic Respiratory: Yes Pneumonia Cardiac: Yes High Cholesterol, Hypertension Neurological: No Reproductive Disorders: No Sexually Transmitted Disease: No HIV/AIDS: No Genitourinary: Yes Prostate Problems Gastrointestinal: Yes Gastroesophageal Reflux, Chronic Constipation, Hiatal Hernia Musculoskeletal: Yes (SCIATICA; LEFT HIP REPLACEMENT; L1 COMPRESSION 01/27/19) Fractures Endocrine: No HEENT: Yes 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 0.0oz. 84.206022sl; 25.00 BMI Method:Stated General Appearance: WD/WN, no apparent distress HEENT: normal ENT inspection, TMs normal, pharynx normal Neck: full range of motion, supple, normal inspection Respiratory: lungs clear, normal breath sounds, no respiratory distress, no accessory muscle use Cardiovascular: normal peripheral pulses, regular rate, rhythm Peripheral Pulses: 2+ Radial Pulses (R), 2+ Radial Pulses (L) Gastrointestinal: normal bowel sounds, soft; No rebound; tenderness (bilateral lower quadrants), other (negative for mesenteric signs or psoas sign) Extremities: normal range of motion, normal inspection, normal capillary refill Neurologic/Psychiatric: alert, normal mood/affect, oriented x 3 Skin: normal color, warm/dry Progress/Results/Core Measures Results/Orders Lab Results Laboratory Tests Test 07/15/19 23:14 Range/Units White Blood Count 10.7 4.3-11.0 10^3/uL Red Blood Count 3.18 L 4.35-5.85 10^6/uL Hemoglobin 10.8 L 13.3-17.7 G/DL Hematocrit 34 L 40-54 % Mean Corpuscular Volume 106 H 80-99 FL Mean Corpuscular Hemoglobin 34 25-34 PG Mean Corpuscular Hemoglobin Concent 32 32-36 G/DL Red Cell Distribution Width 13.6 10.0-14.5 % Platelet Count 217 130-400 10^3/uL Mean Platelet Volume 9.8 7.4-10.4 FL Neutrophils (%) (Auto) 57 42-75 % Lymphocytes (%) (Auto) 25 12-44 % Monocytes (%) (Auto) 11 0-12 % Eosinophils (%) (Auto) 7 0-10 % Basophils (%) (Auto) 0 0-10 % Neutrophils # (Auto) 6.1 1.8-7.8 X 10^3 Lymphocytes # (Auto) 2.7 1.0-4.0 X 10^3 Monocytes # (Auto) 1.1 H 0.0-1.0 X 10^3 Eosinophils # (Auto) 0.8 H 0.0-0.3 10^3/uL Basophils # (Auto) 0.0 0.0-0.1 10^3/uL Prothrombin Time 14.7 12.2-14.7 SEC INR Comment 1.1 0.8-1.4 Activated Partial Thromboplast Time 27 24-35 SEC D-Dimer 2.34 H 0.00-0.49 UG/ML Sodium Level 142 135-145 MMOL/L Potassium Level 4.7 3.6-5.0 MMOL/L Chloride Level 114 H 98-107 MMOL/L Carbon Dioxide Level 19 L 21-32 MMOL/L Anion Gap 9 5-14 MMOL/L Blood Urea Nitrogen 37 H 7-18 MG/DL Creatinine 2.02 H 0.60-1.30 MG/DL Estimat Glomerular Filtration Rate 31 BUN/Creatinine Ratio 18 Glucose Level 132 H 70-105 MG/DL Calcium Level 8.3 L 8.5-10.1 MG/DL Corrected Calcium 9.1 8.5-10.1 MG/DL Magnesium Level 1.8 1.6-2.4 MG/DL Total Bilirubin 0.3 0.1-1.0 MG/DL Aspartate Amino Transf (AST/SGOT) 10 5-34 U/L Alanine Aminotransferase (ALT/SGPT) 7 0-55 U/L Alkaline Phosphatase 86 40-136 U/L Myoglobin 62.7 10.0-92.0 NG/ML Troponin I < 0.028 <0.028 NG/ML Total Protein 6.2 L 6.4-8.2 GM/DL Albumin 3.0 L 3.2-4.5 GM/DL Lipase 25 8-78 U/L My Orders Orders - CONNER DANIELSON Ekg Tracing (07/15/19 23:00) Cbc With Automated Diff (07/15/19 23:04) Magnesium (07/15/19 23:04) Chest 1 View, Ap/Pa Only (07/15/19 23:04) Comprehensive Metabolic Panel (07/15/19 23:04) Myoglobin Serum (07/15/19 23:04) Protime With Inr (07/15/19 23:04) Partial Thromboplastin Time (07/15/19 23:04) O2 (07/15/19 23:04) Monitor-Rhythm Ecg Trace Only (07/15/19 23:04) Lipid Panel (07/16/19 06:00) Ed Iv/Invasive Line Start (07/15/19 23:04) Lipase (07/15/19 23:04) Morphine Injection (Morphine Injection (07/15/19 23:04) Pantoprazole Injection (Protonix Injecti (07/15/19 23:15) Fibrin Degradation Products (07/15/19 23:14) Troponin I (07/15/19 23:14) Ct Abdomen/Pelvis Wo (07/16/19 00:01) Type And Screen (07/16/19 01:48) Fentanyl Injection (Sublimaze Injection (07/16/19 02:15) Medications Given in ED Current Medications Medications Dose Ordered Sig/Jennifer Route Start Time Stop Time Status Last Admin Dose Admin Pantoprazole 40 mg ONCE ONCE IV 07/15/19 23:15 07/15/19 23:16 DC 07/15/19 23:17 40 MG Vital Signs/I&O 07/15/19 07/15/19 22:58 22:58 Temp 36.4 Pulse 61 Resp 20 B/P (MAP) 132/66 (88) Pulse Ox 93 O2 Delivery Room Air Room Air 07/16/19 00:00 Intake Total 200 ml Balance 200 ml Blood Pressure Mean: 88 Progress Progress Note #1: Time: :[address] with IV contrast abdomen pelvis. Chest x-ray EKG. He received aspirin en route by EMS. Initial EKG does not reveal any ST changes. Mesenteric ischemia, bowel obstruction, less likely colitis diverticulitis, bladder infection or kidney stone, hernia? Morphine for pain. He already had a liter of fluid started by EMS. He has aseptic vital signs so we'll let him get the initial liter which is between 10 and 20 cc/kg. Progress Note #2: Time: : Progress Note Patient has stable chronic kidney disease and anemia is dropped 2 points over the last year but is not significantly acutely. Because of his chronic kidney disease this will preclude doing a angiogram or contrasted CT noncontrast for evidence of inflammation, obstruction, etc. Progress Note #3: Time: 02:09 Progress Note The patient is been resting peacefully with a fortunately low blood pressure around 120 -130 systolic. He says the morphine only took the edge off but he was sleeping earlier. We'll give him 75 g of fentanyl as his blood pressure started to creep up to 153/68 either from pain or anxiety. We discussed the findings on his CT as well as the plan to send him to the cardiovascular surgeon in [place] and he says that he is in agreement with doing this and does want to pursue surgery at this time. [facility] was called and is on the way. Initial ECG Impression Date: Jul 15, 2019 Initial ECG Impression Time: 23:02 Initial ECG Rate: 64 Initial ECG Rhythm: Normal Sinus Initial ECG Intervals: Normal Initial ECG Impression: Normal, Nonspecific Changes Comment Normal sinus rhythm without ST elevation or depression. Diagnostic Imaging Diagonstic Imaging: Xray, CT Plain Films/CT/US/NM/MRI: chest Comments Unremarkable 1 view Chest Reviewed: Reviewed by Me Diagonstic Imaging: CT (without IV contrast) Plain Films/CT/US/NM/MRI: abdomen, pelvis Comments Retroperitoneal hematoma on the right area Aortic aneurysm measuring 4.3 cm. Focal severe stenosis within the distal aorta as well as within the proximal common iliac arteries. 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 No clear intimal disruption of the aneurysms however aneurysmal rupture cannot be excluded on this noncontrast exam. Consider angiography for further evaluation. Superior endplate compression fracture at L1 with progressive height loss from the prior. Reviewed: Reviewed [place] Study, Reviewed by Me, Discussed w/Radiologist Departure Impression Primary Impression: AAA (abdominal aortic aneurysm, ruptured) Additional Impression: Retroperitoneal hemorrhage Disposition: 01 HOME, SELF-CARE Condition: Stable Transfer Transfer Reason: Exceeds level of care (vascular surgery) Time Spoke to Accepting Phy: 01:55 Transfer Progress Notes Discussed the case with Dr. painter, cardiovascular surgeon and he would like the patient taken straight to the operating room. Transfer Facility: [place], [place] Method of Transfer: Air ([facility]) Departure-Patient Inst. Referrals: NITESH SIMPSON MD (PCP/Family) Primary Care Physician CONNER DANIELSON Jul 15, 2019 23:30
[2019-07-15 23:36] LABS: FIBRIN DEGRADATION PRODUCTS 2.34 UG/ML (0.00-0.49); INR 1.1 (0.8-1.4); PROTHROMBIN TIME PATIENT 14.7 SEC (12.2-14.7)
[2019-07-15 23:47] LABS: ALANINE AMINOTRANSFERASE 7 U/L (0-55); ALKALINE PHOSPHATASE 86 U/L (40-136); BILIRUBIN,TOTAL 0.3 MG/DL (0.1-1.0); BUN/CREATININE RATIO 18; CALCIUM 8.3 MG/DL (8.5-10.1); CARBON DIOXIDE 19 MMOL/L (21-32); CHLORIDE 114 MMOL/L (98-107); CREATININE SERUM 2.02 MG/DL (0.60-1.30); GFR ESTIMATED 31; GLUCOSE 132 MG/DL (70-105); LIPASE 25 U/L (8-78); MAGNESIUM 1.8 MG/DL (1.6-2.4); POTASSIUM 4.7 MMOL/L (3.6-5.0); SODIUM 142 MMOL/L (135-145); TOTAL PROTEIN 6.2 GM/DL (6.4-8.2)
--- NOTE | 2019-07-16 01:55 | NUR ---
PT'S CALLED ET. UPDATED ON PT'S PLAN TO TRANSFER TO [facility] FOR SURGERY.
--- NOTE | 2019-07-16 01:55 | NUR ---
CALLED [facility] FOR AIR MEDICAL TRANSPORT TO [facility] ACCEPTED CALL, PLACED ON STANDBY. REPORTED T Addendum: 07/16/19 at 0[address] [email or web address] DANIELSON
[2019-07-16] MEDS ORDERED: fentaNYL INJECTION 100 MCG/2 ML AMP IVP ONE (02:15)
[2019-07-16 02:27] VITALS: BP 144/69
--- NOTE | 2019-07-16 07:30 | Diagnostic Imaging Report ---
PROCEDURE: CT abdomen and pelvis without contrast. TECHNIQUE: Multiple contiguous axial images were obtained through the abdomen and pelvis without the use of intravenous contrast. Auto Exposure Controls were utilized during the CT exam to meet ALARA standards for radiation dose reduction. INDICATION: Abdominal pain. COMPARISON: 01/31/2019. FINDINGS: Large hematoma in the right retroperitoneum measuring approximately 15 x 4 cm extending from the level of the kidneys inferiorly to the level of aneurysmal dilatation of the right common iliac artery. This dilatation measures at least 4.7 cm in diameter. There is also an infrarenal abdominal aortic aneurysm measuring up to 3.7 cm. Fibrotic changes in the lung bases. Cholecystectomy. The liver, spleen, adrenals, collecting systems and bladder are grossly unremarkable. The pelvis is obscured by a left BOB streak artifact. Several fluid attenuation masses in both kidneys presumably represent benign cysts. The appendix is not identified may be surgically absent. No free intraperitoneal air. No evidence of bowel obstruction. No lymphadenopathy. Interval progression of the L1 compression fracture now resulting in approximately 50% height loss and mild retropulsion. IMPRESSION: 1. Large right retroperitoneal hematoma. 2. 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 This may be the origin of the hematoma. Infrarenal abdominal aortic aneurysm measures up to 3.7 cm. Ruptured abdominal aortic aneurysm cannot be excluded. Recommend angiography for further evaluation. 3. Interval progression of the L1 compression fracture resulting in approximately 50% height loss. Findings were discussed Dr. Riddle by the preliminary interpreting radiologist 1:42 AM on 07/16/2019. Dictated by: Dictated on workstation # [id number]
--- NOTE | 2019-07-16 08:02 | Diagnostic Imaging Report ---
EXAMINATION: Chest 1 view HISTORY: Chest pain. COMPARISON: 06/15/2012 FINDINGS: Coarse interstitial markings are seen in the bilateral lung bases. No focal consolidation or pulmonary mass. The heart size is upper limits of normal. No large pleural effusion or pneumothorax. No acute osseous abnormalities. IMPRESSION: 1. Coarse interstitial markings in the lung bases bilaterally, likely representing chronic fibrotic changes. No focal consolidations. 2. Mild cardiomegaly. Dictated by: Dictated on workstation # [id number]
== END 2019-07-16 02:38 | disposition short-term general hospital (02) ==
LOC: EDUNIT# 22:58 → ER 22:59
DX: I71.4 Abdominal aortic aneurysm, without rupture (principal); K66.1 Hemoperitoneum; I10 Essential (primary) hypertension; E78.00 Pure hypercholesterolemia, unspecified; Z85.038 Personal history of other malignant neoplasm of large intestine; Z88.8 Allergy status to other drugs, medicaments and biological substances; Z79.82 Long term (current) use of aspirin; Z87.891 Personal history of nicotine dependence; Z96.642 Presence of left artificial hip joint
CPT/HCPCS: 36415; 71045; 74176; 80053; 83690; 83735; 83874; 84484; 85025; 85379; 85610; 85730; 86850; 86900; 86901; 93005; 93041